=== PATIENT | female | born 1990 | race Caucasian/White ===

== ENCOUNTER 2017-02-28 19:52 | Emergency (ER) | payer OTHER ==
[~2017-02-28] VITALS: Ht 152.4 cm; Wt 57.2 kg
[~2017-02-28 19:52] MED LIST: DOXY100C2 PO; GABA1CAP4 PO; LISD60CA PO; ONDA4TAB46 PO; OXYC-164 PO; OXYC1TAB3 PO
[2017-02-28 20:03] VITALS: TEMP 36.7; Ht 152.4 cm; Wt 57.2 kg
[2017-02-28] MEDS ORDERED: KETOROLAC TROMETHAMINE 30 MG/ML VIAL IV STA (20:33)
[2017-02-28] MEDS ORDERED: SODIUM CHLORIDE 0.9% 1000ML 1,000 ML IV STA ×2 (20:33→23:06)
[2017-02-28 20:47] LABS: URINE APPEARANCE CLEAR (CLEAR); URINE BILIRUBIN NEG (NEG); URINE COLOR YELLOW; URINE EPITHELIAL CELL AUTO >30 /lpf (0-5); URINE NITRITE NEG (NEG); URINE SPECIFIC GRAVITY 1.011 (1.000-1.030); UROBILINOGEN NEG (NEG); ZZUR CULT IF INDIC CLEAN CATCH YES
[2017-02-28 20:48] LABS: MANUAL MICROSCOPIC REQUIRED? NO; REVIEW REQ? NO
[2017-02-28 21:04] LABS: BASO % 0.3 %; BASO ABS # 0.02 K/uL (0-0.2); COMPLETE YES; EOS % 1.7 %; HEMATOCRIT 43.4 % (37-47); IG% 0.2 %; LYMPH ABS # 2.27 K/uL (1.2-3.4); MEAN CELL VOLUME 92.7 fL (80-100); MEAN CORPUSCULAR HEMOGLOBIN 30.8 pg (25-34); MEAN CORPUSCULAR HGB CONC 33.2 g/dl (32-36); MONO % 10.4 %; NEUT % 49.4 %; PLATELET COUNT 336 K/uL (130-400); RED BLOOD COUNT 4.68 M/uL (4.2-5.4); WHITE BLOOD COUNT 5.98 K/uL (4.8-10.8)
--- NOTE | 2017-02-28 21:12 | DIAGNOSTIC IMAGING REPORT ---
CT HEAD WITHOUT CONTRAST (CT) CLINICAL HISTORY: Severe headache COMPARISON STUDY: 09/04/2016 TECHNIQUE: Axial CT of the brain is performed from the vertex to the skull base. IV contrast was not administered for this examination. CT DOSE: 537.48 mGy.cm FINDINGS: No intra or extra-axial mass lesions are visualized. There is no CT evidence of acute cortical infarction. There is no evidence of midline shift. There is no acute hemorrhage. No calvarial fractures are visualized. There is no evidence of pathologic ventricular dilatation. There is no evidence of acute sinusitis IMPRESSION: Normal noncontrast head CT. Electronically signed by: Larry Carrilol M.D. 02/28/2017 9:10 PM Dictated Date/Time: 02/28/2017 9:09 PM
[2017-02-28] MEDS ORDERED: AMPH20TA2 PO (21:14)
[2017-02-28] MEDS ORDERED: NORT10CA PO (21:14)
[2017-02-28 21:16] LABS: BENZODIAZEPINE, URINE NEG (NEG); COCAINE,URINE NEG (NEG); PHENCYCLIDINE, URINE NEG (NEG)
[2017-02-28 21:21] LABS: ALT/SGPT 25 U/L (12-78); BLOOD UREA NITROGEN 14 mg/dl (7-18); BUN/CREATININE RATIO 12.4 (10-20); CARBON DIOXIDE 26 mmol/L (21-32); CHLORIDE 105 mmol/L (98-107); GLUCOSE 93 mg/dl (70-99); POTASSIUM 3.6 mmol/L (3.5-5.1); SODIUM 140 mmol/L (136-145)
[2017-02-28 21:24] LABS: ALKALINE PHOSPHATASE 73 U/L (45-117); AST/SGOT 15 U/L (15-37)
[2017-02-28 21:56] LABS: CALCIUM 9.1 mg/dl (8.5-10.1)
[2017-03-01 00:12] VITALS: BP 116/81; PULSE 94; O2SAT 100
--- NOTE | 2017-03-01 02:07 | EMERGENCY ROOM VISIT NOTE ---
History Report prepared by Joby: Guerrero Perea Under the Supervision of: Dr. Perfecto Amado D.O. First contact with patient: 20:14 Chief Complaint: NEURO SYMPTOMS Stated Complaint: BLURRY VISION,SOB,HAD SEIZURE LAST NIGHT History of Present Illness The patient is a 26 year old female who presents to the Emergency Room with complaints of persistent vision irregularities that began at 2200 last night, 22 hours prior to arrival. The patient states that she had a seizure-like episode last night at 2200. Before this episode occurred the patient states that she was "seeing dots" and had a headache that felt like there was a pressure behind her eyes. She also started to experience "tingling and numbness " down the back of her legs and into her calves. Her noted that she then passed out for roughly a minute. After this episode the patient's hand were "cramped up" and she could not move them. When she woke up she was aware of who and where she was. She denies biting her tongue or becoming incontinent during this episode. She denies any history of seizure activity. The patient went to the [facility] following this episode. She claims that she is still experiencing the vision irregularities at this time. She describes her vision as hazy, and notes that she is intermittently seeing double. She is also currently experiencing a headache, but claims that she has had headaches everyday since she was diagnosed with Lyme Disease in July of last year. She recently was started on Nortriptyline for these head aches on the fifth of this month, four days prior to this visit. At the outside hospital she was treated for tardive dyskinesia and sent home. Source of History: patient Onset: 22 hours BAKER BENCH Position: eye (bilateral) Quality: other (Vision irregularities) Timing: other (Persistent) Associated Symptoms: + numbness ((tingling down legs)) Note: Syncopal episodes Review of Systems See HPI for pertinent positives & negatives. A total of 10 systems reviewed and were otherwise negative. Past Medical & Surgical Medical Problems: (1) Acute urinary tract infection (2) No Known Active Medical Problems Family History No pertinent family history Social History Smoking Status: Never Smoker Alcohol Use: occasionally Drug Use: none Marital Status: single Occupation Status: employed Current/Historical Medications Scheduled Amphetamine-Dextroamphetamine 20MG (Adderall 20MG), 20 MG PO QAM Nortriptyline Hcl (Pamelor), 10 MG PO HS Allergies Coded Allergies: No Known Allergies (Unverified , 02/28/17) Physical Exam Vital Signs Date Time Temp Pulse Resp B/P Pulse Ox O2 Delivery O2 Flow Rate FiO2 03/01/17 00:12 94 18 116/81 100 02/28/17 22:57 95 18 137/100 100 Room Air 02/28/17 21:27 92 18 137/99 100 Room Air 02/28/17 20:03 36.7 130 20 141/83 98 Room Air Physical Exam GENERAL: Sitting up in bed, disheveled appearing. EYE EXAM: normal conjunctiva, PERRL and EOM's intact OROPHARYNX: no exudate, no erythema, lips, buccal mucosa, and tongue normal and mucous membranes are moist NECK: Negative Brudzinski, supple, no nuchal rigidity, no adenopathy, non-tender LUNGS: Clear to auscultation. Normal chest wall mechanics HEART: Tachycardiac. no murmurs, S1 normal and S2 normal ABDOMEN: abdomen soft, non-tender, normo-active bowel sounds, no masses, no rebound or guarding. BACK: Back is symmetrical on inspection and there is no deformity, no midline tenderness, no CVA tenderness. SKIN: no rashes and no bruising UPPER EXTREMITIES: upper extremities are grossly normal. LOWER EXTREMITIES: No pitting edema. Patellar reflexes 2/4. NEURO EXAM: Normal sensorium, cranial nerves II-XII intact, normal speech, no weakness of arms, no weakness of legs. No drift. Finger to nose intact. Gross sensation intact. Medical Decision & Procedures ER Provider Diagnostic Interpretation: Radiology results as stated below per my review and the radiologist's interpretation: CT HEAD WITHOUT CONTRAST (CT) CLINICAL HISTORY: Severe headache COMPARISON STUDY: 09/04/2016 TECHNIQUE: Axial CT of the brain is performed from the vertex to the skull base. IV contrast was not administered for this examination. CT DOSE: 537.48 mGy.cm FINDINGS: No intra or extra-axial mass lesions are visualized. There is no CT evidence of acute cortical infarction. There is no evidence of midline shift. There is no acute hemorrhage. No calvarial fractures are visualized. There is no evidence of pathologic ventricular dilatation. There is no evidence of acute sinusitis IMPRESSION: Normal noncontrast head CT. Electronically signed by: Larry Carrillo M.D. 02/28/2017 9:10 PM Dictated Date/Time: 02/28/2017 9:09 PM PORTABLE UP RIGHT AV CHEST X-RAY: No focal infiltrate. No pneumothorax. Laboratory Results 02/28/17 20:50 Red Blood Count 4.68, Mean Corpuscular Volume 92.7, Mean Corpuscular Hemoglobin 30.8, Mean Corpuscular Hemoglobin Concent 33.2, Mean Platelet Volume 10.0, Neutrophils (%) (Auto) 49.4, Lymphocytes (%) (Auto) 38.0, Monocytes (%) (Auto) 10.4, Eosinophils (%) (Auto) 1.7, Basophils (%) (Auto) 0.3, Neutrophils # (Auto ) 2.96, Lymphocytes # (Auto) 2.27, Monocytes # (Auto) 0.62, Eosinophils # (Auto ) 0.10, Basophils # (Auto) 0.02 02/28/17 20:50 Test 02/28/17 20:30 02/28/17 20:50 Urine Color YELLOW Urine Appearance CLEAR (CLEAR) Urine pH 6.0 (4.5-7.5) Urine Specific Ringold 1.011 (1.000-1.030) Urine Protein NEG (NEG) Urine Glucose (UA) NEG (NEG) Urine Ketones NEG (NEG) Urine Occult Blood NEG (NEG) Urine Nitrite NEG (NEG) Urine Bilirubin NEG (NEG) Urine Urobilinogen NEG (NEG) Urine Leukocyte Esterase SMALL (NEG) Urine WBC (Auto) 10-30 /hpf (0-5) Urine RBC (Auto) 0-4 /hpf (0-4) Urine Hyaline Casts (Auto) 1-5 /lpf (0-5) Urine Epithelial Cells (Auto) >30 /lpf (0-5) Urine Bacteria (Auto) NEG (NEG) Urine Test NEG (NEG) Urine Opiates Screen NEG (NEG) Urine Methadone, Qualitative NEG (NEG) Urine Barbiturates NEG (NEG) Urine Phencyclidine (PCP) Level NEG (NEG) Ur Amphetamine/Methamphetamine POS (NEG) MDMA (Ecstasy) Screen NEG (NEG) Urine Benzodiazepines Screen NEG (NEG) Urine Cocaine Metabolite NEG (NEG) Urine Marijuana (THC) NEG (NEG) White Blood Count 5.98 K/uL (4.8-10.8) Red Blood Count 4.68 M/uL (4.2-5.4) Hemoglobin 14.4 g/dL (12.0-16.0) Hematocrit 43.4 % (37-47) Mean Corpuscular Volume 92.7 fL (80-100) Mean Corpuscular Hemoglobin 30.8 pg (25-34) Mean Corpuscular Hemoglobin Concent 33.2 g/dl (32-36) Platelet Count 336 K/uL (130-400) Mean Platelet Volume 10.0 fL (7.4-10.4) Neutrophils (%) (Auto) 49.4 % Lymphocytes (%) (Auto) 38.0 % Monocytes (%) (Auto) 10.4 % Eosinophils (%) (Auto) 1.7 % Basophils (%) (Auto) 0.3 % Neutrophils # (Auto) 2.96 K/uL (1.4-6.5) Lymphocytes # (Auto) 2.27 K/uL (1.2-3.4) Monocytes # (Auto) 0.62 K/uL (0.11-0.59) Eosinophils # (Auto) 0.10 K/uL (0-0.5) Basophils # (Auto) 0.02 K/uL (0-0.2) RDW Standard Deviation 45.0 fL (36.4-46.3) RDW Coefficient of Variation 13.4 % (11.5-14.5) Immature Granulocyte % (Auto) 0.2 % Immature Granulocyte # (Auto) 0.01 K/uL (0.00-0.02) D-Dimer < 190 ug/L FEU (0-500) Anion Gap 9.0 mmol/L (3-11) Est Creatinine Clear Calc Drug Dose 61.9 ml/min Estimated GFR () 80.8 Estimated GFR (Non- 69.7 BUN/Creatinine Ratio 12.4 (10-20) Calcium Level 9.1 mg/dl (8.5-10.1) Total Bilirubin 0.5 mg/dl (0.2-1) Direct Bilirubin 0.1 mg/dl (0-0.2) Aspartate Amino Transf (AST/SGOT) 15 U/L (15-37) Alanine Aminotransferase (ALT/SGPT) 25 U/L (12-78) Alkaline Phosphatase 73 U/L (45-117) Troponin I < 0.015 ng/ml (0-0.045) Total Protein 8.4 gm/dl (6.4-8.2) Albumin 4.7 gm/dl (3.4-5.0) Lipase 142 U/L (73-393) Laboratory results per my review. Medications Administered Medications (Trade) Dose Ordered Sig/Ramiro Route Start Time Stop Time Status Last Admin Dose Admin Sodium Chloride (Nss 1000ml) 1,000 ml @ 999 mls/hr Q1H1M STAT IV 02/28/17 20:33 02/28/17 21:33 DC 02/28/17 20:54 999 MLS/HR Ketorolac Tromethamine 30 mg 30 mg NOW STAT IV 02/28/17 20:33 02/28/17 20:36 DC 02/28/17 20:54 30 MG Sodium Chloride (Nss 1000ml) 1,000 ml @ 999 mls/hr Q1H1M STAT IV 02/28/17 23:06 03/01/17 00:06 DC 02/28/17 23:21 999 MLS/HR ECG Indication: tachycardia Rate (beats per minute): 111 Findings: other (Normal axis, normal intervals) ED Course ED COURSE: Vital signs were reviewed and showed tachycardiac vitals The patients medical record was reviewed The above diagnostic studies were performed and reviewed. ED treatments and interventions as stated above. 2019: The patient was evaluated in room C12. A complete history and physical examination was performed. 2033: Ordered Toradol 30 mg IV, Sodium Chloride 1000 mL @ 999 mL/hr IV. 2306: Ordered Sodium Chloride 1000 mL @ 999 mL/hr IV. 2328: I discussed the case with Dr. Carrera at this time, he believes her symptoms are secondary to the Nortriptyline. Her vision and seizure-like symptoms can be the result of this medication. 2339: I had a very long conversation with the patient at bed side. She declines a LP at this time. 2342: Upon reevaluation, the patient is resting in bed.I discussed my findings with the patient and she understands and agrees with the treatment plan. Based on the patients age, coexisting illnesses, exam and lab findings the decision to treat as an outpatient was made. The patient remained stable while under my care. Medical Decision Differential Diagnosis includes but is not limited to dehydration, stroke, anemia, hypoglycemia, hyponatremia, hypernatremia, urinary tract infection, pneumonia, bronchitis, sepsis, gastroenteritis, additional abdominal pathology, metabolic abnormalities and infections. Patient is a 26-year-old female who presents the ER for an episode where she passed out yesterday. She did not bite her tongue and did not lose control of her bowel or bladder. She notes that she did have rigidity in her upper and lower extremities at that time. She seen at outside hospital and treated for tardive dyskinesia their records. On my exam she is completely neurologically intact. This does not appear to be a seizure. EKG was unremarkable. Labs including CBC, BMP, LFTs, troponin and lipase were normal. Tox screen was normal. UA was contaminated with multiple epithelial cells. was negative. D-dimer was negative as discussed above. I do not believe this to be cardiac. With a negative d-dimer I do not believe this to be a PE causing her shortness of breath or a CVT causing her headache. She had a fever previously but has taken no Tylenol or Motrin. No other recorded fevers. No fever upon presentation. CT head was negative. She was given fluids and heart rate trended down. I discussed my findings with neurology. They believe that the blurry vision and near seizure activity is likely secondary to the nortriptyline that she started taking. Dr. Carrera notes that this can take several days to resolve. I updated the patient regards to these findings. Dr. Carrera agreed that an MRI was not beneficial at this time. Patient felt significantly better and was discharged follow-up with her PCP. I did give her referral to neurology. Stressed the importance of not taking the nortriptyline. There is no signs of meningitis or encephalitis on exam. I did offer an LP but patient declined and she does not believe that she has meningitis. I explained the risk and benefits. Discussed with Pt concerning signs and symptoms to watch out for. Pt was instructed to follow up with their PCP and discussed with the patient their option to return to the ED at anytime for persistent or worsening symptoms. The appropriate anticipatory guidance and out-patient management, including indications for return to the emergency department, were explained at length to the patient and understood. Consults Time Called: [phone] Consulting Physician: Dr. Carrera Returned Call: [phone] I discussed the case with Dr. Carrera at this time, he believes her symptoms are secondary to the Nortriptyline. Her vision and seizure-like symptoms can be the result of this medication. Impression Primary Impression: Medication side effect Additional Impressions: Headache Bilateral leg paresthesia Scribe Attestation The scribe's documentation has been prepared under my direction and personally reviewed by me in its entirety. I confirm that the note above accurately reflects all work, treatment, procedures, and medical decision making performed by me. Departure Information Dispostion Home / Self-Care Referrals Mirna Medina (PCP) Forms HOME CARE DOCUMENTATION FORM, IMPORTANT VISIT INFORMATION, WORK / SCHOOL INSTRUCTIONS Patient Instructions My [facility] Additional Instructions Please follow up with your primary care doctor with in the next 24 hours. Any worsening of your symptoms, please return to the ED immediately. This includes passing out, chest pain, shortness of breath, weakness of your arms or legs, confusion or any other concerning signs or symptoms from your standpoint. Please stop taking the nortriptyline. Please follow-up with neurology as listed below. Problem Qualifiers Primary Impression: Medication side effect Encounter type: sequela Qualified Codes: T88.7XXS - Unspecified adverse effect of drug or medicament, sequela Additional Impressions: Headache Headache type: unspecified Headache chronicity pattern: acute headache Intractability: not intractable Qualified Codes: R51 - Headache
--- NOTE | 2017-03-01 06:37 | DIAGNOSTIC IMAGING REPORT ---
CHEST ONE VIEW PORTABLE CLINICAL HISTORY: Chest pain. COMPARISON STUDY: Chest CT June 05, 2014. FINDINGS: Lung volumes are normal. Lungs are clear. There is no pneumothorax or pleural effusion. Cardiac size is normal. Mediastinal contours are normal. There is no evidence of pulmonary edema. IMPRESSION: No acute cardiopulmonary findings. Electronically signed by: Eduardo Leslie M.D. 03/01/2017 6:36 AM Dictated Date/Time: 03/01/2017 6:35 AM
== END 2017-03-01 00:13 | disposition home or self-care (01) ==
LOC: C.EDB 19:54 → C.EDC 03-01 00:13
DX: T78.40XA Allergy, unspecified, initial encounter (principal); X58.XXXA Exposure to other specified factors, initial encounter; R51 Headache; R20.2 Paresthesia of skin; R00.1 Bradycardia, unspecified; Z87.440 Personal history of urinary (tract) infections; Z79.899 Other long term (current) drug therapy

== ENCOUNTER 2017-03-01 11:48 | Emergency (ER) | payer OTHER ==
[~2017-03-01] VITALS: Ht 152.4 cm; Wt 57.9 kg
[~2017-03-01 11:48] MED LIST changes: +AMPH20TA2 PO; +NORT10CA PO
[2017-03-01 11:51] VITALS: Ht 152.4 cm; Wt 57.9 kg
[2017-03-01] MEDS ORDERED: SODIUM CHLORIDE 0.9% 1000ML 1,000 ML IV STA (12:17)
[2017-03-01] MEDS ORDERED: SODIUM CHLORIDE 0.9% 1000ML 1,000 ML IV ONE (12:17)
[2017-03-01] MEDS ORDERED: KETOROLAC TROMETHAMINE 30 MG/ML VIAL IV STA (12:17)
--- NOTE | 2017-03-01 12:20 | EMERGENCY ROOM VISIT NOTE ---
History Report prepared by Joby: Nathan Alfred Under the Supervision of: Dr. Jason Bee M.D. First contact with patient: 12:01 Chief Complaint: CONFUSION Stated Complaint: BLURRED VISION, HEADACHE, CONFUSION History of Present Illness The patient is a 26 year old female who presents to the Emergency Room with complaints of a headache that began a couple of days ago. She rates her pain a 5 /10 in severity. In July 2016, she was diagnosed with "lymes meningitis." She received an MRI which found a Chiari malformation, but she did not meet all of the criteria. Two days ago she had a seizure-like episode, which she went to the [place] ED. During this episode, she could not breath and lost consciousness. She was also experiencing a headache that she describes as pressure behind her eyes and blurry vision. 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 She takes this medication for her past medical history of migraines. Yesterday she was seen in the [facility] ED for worsening headache and vision blurring. She had an extensive work up. The doctors here thought she was having adverse reactions from her Nortriptyline. These symptoms are persistent today with added confusion. Per her , the patient was playing with a dog in her living room, but they do not have a dog. She is currently experiencing weakness in her extremities and tingling in her calfs. She denies any shortness of breath, fevers, or rash. Source of History: patient Onset: a couple of days ago Position: head Symptom Intensity: 5/10 Quality: ache Timing: constant Associated Symptoms: + weakness, No SOB, No fevers, No rash Note: She is experiencing blurred vision. Review of Systems See HPI for pertinent positives & negatives. A total of 10 systems reviewed and were otherwise negative. Past Medical & Surgical Medical Problems: (1) Acute urinary tract infection (2) No Known Active Medical Problems Old medical records were reviewed. Nurse's notes were reviewed and I agree with. Family History No pertinent family history Social History Smoking Status: Former Smoker Alcohol Use: occasionally Drug Use: none Marital Status: single Occupation Status: employed Current/Historical Medications Scheduled Amphetamine-Dextroamphetamine 20MG (Adderall 20MG), 20 MG PO QAM Nortriptyline Hcl (Pamelor), 10 MG PO HS Allergies Coded Allergies: No Known Allergies (Unverified , 02/28/17) Physical Exam Vital Signs Date Time Temp Pulse Resp B/P Pulse Ox O2 Delivery O2 Flow Rate FiO2 03/01/17 16:39 37.1 90 18 126/93 98 03/01/17 15:15 104 20 138/100 100 Room Air 03/01/17 13:16 93 18 141/97 100 Room Air 03/01/17 11:51 37.1 130 20 139/90 100 Room Air Physical Exam General: Non-ill appearing young female, Well developed well nourished in no acute distress, breathing comfortably on room air. Normal speech HEENT: Normal cephalic atraumatic. Pupils are equal round and reactive to light. Extraocular movements are intact. Oropharynx is pink with moist mucous membranes. No swelling of the mouth lips or tongue. Neck: Supple with a midline trachea. No meningeal signs or stiffness, no JVD or bruits. No Stridor. Chest: Clear to auscultation bilaterally. No wheezes or rhonchi. No increased work of breathing. Heart: regular rate and rhythm. Abdomen: Soft nontender, nondistended without rebound guarding or rigidity. Extremities: No cyanosis clubbing or edema. No calf tenderness or assymetry Spine/Back. Non tender to palpation. No CVA tenderness Skin: Good turgor without rashes. Neurologic exam: Cranial nerves two through 12 are intact. Motor and sensation are intact and symmetrical throughout. Medical Decision & Procedures ER Provider Diagnostic Interpretation: Radiology results as stated below per my review and radiologist interpretation: MRA OF THE INTRACRANIAL CIRCULATION WITHOUT CONTRAST CLINICAL HISTORY: Headache. Eye pain. Blurred vision. COMPARISON STUDY: Head CT February 28, 2017. TECHNIQUE: Utilizing a 1.5 Mirta magnet and 3-D [id number] technique, unenhanced MRA of the intracranial circulation was obtained. FINDINGS: The MRI of the brain will be reported separately. This exam is mildly compromised by motion artifact which likely accounts for apparent irregularity of the bilateral cavernous carotids. The bilateral M1, M2, A1 and A2 segments are patent. There is no intracranial aneurysm or abrupt vessel cut off. Posterior circulation is intact. There are bilateral posterior communicating arteries and an anterior communicating artery. IMPRESSION: 1. Unremarkable MRA of the intracranial circulation. 2. Study mildly compromised by motion artifact. Electronically signed by: Eduardo Leslie M.D. 03/01/2017 1:59 PM Dictated Date/Time: 03/01/2017 1:56 PM MRI OF THE BRAIN WITHOUT AND WITH IV CONTRAST CLINICAL HISTORY: Headache. Blurred vision. COMPARISON STUDY: Head CT February 28, 2017. TECHNIQUE: Utilizing a 1.5 Mirta magnet and dedicated coil, multiplanar, multiecho imaging of the brain was performed pre and postcontrast administration. IV administration of 5.5 mL of Gadavist contrast was uneventful. FINDINGS: There are no areas of restricted diffusion. No acute intracranial hemorrhage, midline shift or mass effect is present. Brain volume is normal. Ventricular system is normal. Basilar cisterns are patent. There are no extra-axial collections. Flow-voids for the major intracranial vessels are present. There are no intracranial masses or pathologic enhancement. There is no abnormal signal within the brain. Calvarium is intact. Orbits and sinuses are unremarkable. There is no fluid within the mastoid air cells. There is no evidence of a Chiari malformation IMPRESSION: Normal MRI of the brain. Electronically signed by: Eduardo Leslie M.D. 03/01/2017 2:25 PM Dictated Date/Time: 03/01/2017 2:21 PM Laboratory Results 03/01/17 12:30 Red Blood Count 4.42, Mean Corpuscular Volume 92.3, Mean Corpuscular Hemoglobin 31.0, Mean Corpuscular Hemoglobin Concent 33.6, Mean Platelet Volume 10.3, Neutrophils (%) (Auto) 49.8, Lymphocytes (%) (Auto) 39.8, Monocytes (%) (Auto) 8.1, Eosinophils (%) (Auto) 2.1, Basophils (%) (Auto) 0.2, Neutrophils # (Auto) 2.15, Lymphocytes # (Auto) 1.72, Monocytes # (Auto) 0.35, Eosinophils # (Auto) 0.09, Basophils # (Auto) 0.01 03/01/17 12:30 Test 03/01/17 12:30 White Blood Count 4.32 K/uL (4.8-10.8) Red Blood Count 4.42 M/uL (4.2-5.4) Hemoglobin 13.7 g/dL (12.0-16.0) Hematocrit 40.8 % (37-47) Mean Corpuscular Volume 92.3 fL (80-100) Mean Corpuscular Hemoglobin 31.0 pg (25-34) Mean Corpuscular Hemoglobin Concent 33.6 g/dl (32-36) Platelet Count 287 K/uL (130-400) Mean Platelet Volume 10.3 fL (7.4-10.4) Neutrophils (%) (Auto) 49.8 % Lymphocytes (%) (Auto) 39.8 % Monocytes (%) (Auto) 8.1 % Eosinophils (%) (Auto) 2.1 % Basophils (%) (Auto) 0.2 % Neutrophils # (Auto) 2.15 K/uL (1.4-6.5) Lymphocytes # (Auto) 1.72 K/uL (1.2-3.4) Monocytes # (Auto) 0.35 K/uL (0.11-0.59) Eosinophils # (Auto) 0.09 K/uL (0-0.5) Basophils # (Auto) 0.01 K/uL (0-0.2) RDW Standard Deviation 45.2 fL (36.4-46.3) RDW Coefficient of Variation 13.3 % (11.5-14.5) Immature Granulocyte % (Auto) 0.0 % Immature Granulocyte # (Auto) 0.00 K/uL (0.00-0.02) Erythrocyte Sedimentation Rate 2 mm/hr (0-21) Anion Gap 5.0 mmol/L (3-11) Est Creatinine Clear Calc Drug Dose 81.6 ml/min Estimated GFR () 112.0 Estimated GFR (Non- 96.6 BUN/Creatinine Ratio 11.1 (10-20) Calcium Level 8.9 mg/dl (8.5-10.1) Total Bilirubin 0.8 mg/dl (0.2-1) Direct Bilirubin 0.2 mg/dl (0-0.2) Aspartate Amino Transf (AST/SGOT) 11 U/L (15-37) Alanine Aminotransferase (ALT/SGPT) 22 U/L (12-78) Alkaline Phosphatase 61 U/L (45-117) Total Protein 7.4 gm/dl (6.4-8.2) Albumin 4.1 gm/dl (3.4-5.0) Lipase 91 U/L (73-393) Laboratory studies as stated above per my review. Medications Administered Medications (Trade) Dose Ordered Sig/Ramiro Route Start Time Stop Time Status Last Admin Dose Admin Sodium Chloride (Nss 1000ml) 1,000 ml @ 999 mls/hr Q1H1M STAT IV 03/01/17 12:17 03/01/17 13:17 DC 03/01/17 12:34 999 MLS/HR Ketorolac Tromethamine (Toradol Inj) 30 mg NOW STAT IV 03/01/17 12:17 03/01/17 12:20 DC 03/01/17 12:47 30 MG ECG Indication: altered mental status Rate (beats per minute): 92 Rhythm: normal sinus Findings: no acute ischemic change, other (No significant prolongation of QT) Comparison ECG Date: 28 Feb 2017 Change: The rate has decreased. ED Course 1201: Past medical records reviewed. The patient was evaluated in room C6, and a complete history and physical examination were performed. 1217: Ordered Toradol Inj 30 mg IV, Sodium Chloride 1000 ml @ 150 mls/hr IV, Sodium Chloride 1000 ml @ 999 mls/hr IV 1323: The patient declines any further pain medications. She feels better and is going to MRI. 1450: She is still feeling better. Her mother is coming to her room soon. 1518: I spoke with her mother at this time. She told me that the patient went to [place] on Monday, and they gave her several shots in the butt. 1613: Upon reevaluation, the patient is resting. I discussed the results and treatment plan with her. She verbalized agreement of the treatment plan. The patient was discharged home. Medical Decision Differentials include migraine, infection, intracranial process, electrolyte or metabolic abnormality, and meningitis. This patient comes in as described above. She has continued headache and blurry vision. She was seen recently last evening and was thought most likely related to her nortriptyline. She had extensive workup including CAT scan of her head she continues of the symptoms. She is afebrile and looks well on exam. She has a normal neurologic exam. IV access established. she was given IV hydration and Toradol. I did an MRI and MRA of her brain. She was reassessed frequently. She was feeling better and I talked to her mother at length. Apparently, she was much worse yesterday where she was seen things. Her mother tells me that on Monday, 2 days ago she seen in the [place] emergency department. I did get get the records from [place] and she apparently was very anxious and they gave her 1 mg by mouth Ativan as well as Cogentin 2 mg IM. She also had been recently on nortriptyline I think that a lot of her symptoms may be anticholinergic. She seems to be doing better than yesterday although still not 100%. She has a normal neurologic exam. I did MRI and MRA of her brain are unremarkable. Her blood work is unremarkable . Her sedimentation rate is 2 and therefore not inflammatory . She has nothing to suggest meningitis or encephalitis. I talked to her mother who is an ICU nurses at length, she agrees with the plan. At this point, I do not feel the patient needs a spinal tap. She does not desire one at this point either. Again, I think most likely is related to the medication she received as she did not have a lot of these symptoms prior to receiving the Cogentin which is likely a large relatively large dose given her body size. She was encouraged to follow-up with her regular doctor return if: Worsening of symptoms, fever or chills, numbness or weakness, any new problems or concerns. Impression Primary Impression: Blurred vision Additional Impressions: Anticholinergic crisis Medication side effect Scribe Attestation The scribe's documentation has been prepared under my direction and personally reviewed by me in its entirety. I confirm that the note above accurately reflects all work, treatment, procedures, and medical decision making performed by me. Departure Information Dispostion Home / Self-Care Referrals Mirna Medina (PCP) Forms HOME CARE DOCUMENTATION FORM, IMPORTANT VISIT INFORMATION, WORK / SCHOOL INSTRUCTIONS Patient Instructions [facility] Additional Instructions Rest Stop the Nortryptylline REturn if: worsening of symptoms, any new problems or concerns, fever or chills. Follow-up with your doctor tomorrow for recheck. Problem Qualifiers
[2017-03-01 12:47] LABS: BASO % 0.2 %; BASO ABS # 0.01 K/uL (0-0.2); COMPLETE YES; EOS % 2.1 %; HEMATOCRIT 40.8 % (37-47); LYMPH % 39.8 %; LYMPH ABS # 1.72 K/uL (1.2-3.4); MEAN CELL VOLUME 92.3 fL (80-100); MEAN CORPUSCULAR HGB CONC 33.6 g/dl (32-36); MEAN PLATELET VOLUME 10.3 fL (7.4-10.4); MONO % 8.1 %; NEUT % 49.8 %; PLATELET COUNT 287 K/uL (130-400); RED BLOOD COUNT 4.42 M/uL (4.2-5.4); WHITE BLOOD COUNT 4.32 K/uL (4.8-10.8)
[2017-03-01 13:13] LABS: BUN/CREATININE RATIO 11.1 (10-20); CALCIUM 8.9 mg/dl (8.5-10.1); CREATININE 0.84 mg/dl (0.60-1.20); POTASSIUM 3.8 mmol/L (3.5-5.1)
--- NOTE | 2017-03-01 14:00 | DIAGNOSTIC IMAGING REPORT ---
MRA OF THE INTRACRANIAL CIRCULATION WITHOUT CONTRAST CLINICAL HISTORY: Headache. Eye pain. Blurred vision. COMPARISON STUDY: Head CT February 28, 2017. TECHNIQUE: Utilizing a 1.5 Mirta magnet and 3-D [id number] technique, unenhanced MRA of the intracranial circulation was obtained. FINDINGS: The MRI of the brain will be reported separately. This exam is mildly compromised by motion artifact which likely accounts for apparent irregularity of the bilateral cavernous carotids. The bilateral M1, M2, A1 and A2 segments are patent. There is no intracranial aneurysm or abrupt vessel cut off. Posterior circulation is intact. There are bilateral posterior communicating arteries and an anterior communicating artery. IMPRESSION: 1. Unremarkable MRA of the intracranial circulation. 2. Study mildly compromised by motion artifact. Electronically signed by: Eduardo Leslie M.D. 03/01/2017 1:59 PM Dictated Date/Time: 03/01/2017 1:56 PM
--- NOTE | 2017-03-01 14:26 | DIAGNOSTIC IMAGING REPORT ---
MRI OF THE BRAIN WITHOUT AND WITH IV CONTRAST CLINICAL HISTORY: Headache. Blurred vision. COMPARISON STUDY: Head CT February 28, 2017. TECHNIQUE: Utilizing a 1.5 Mirta magnet and dedicated coil, multiplanar, multiecho imaging of the brain was performed pre and postcontrast administration. IV administration of 5.5 mL of Gadavist contrast was uneventful. FINDINGS: There are no areas of restricted diffusion. No acute intracranial hemorrhage, midline shift or mass effect is present. Brain volume is normal. Ventricular system is normal. Basilar cisterns are patent. There are no extra-axial collections. Flow-voids for the major intracranial vessels are present. There are no intracranial masses or pathologic enhancement. There is no abnormal signal within the brain. Calvarium is intact. Orbits and sinuses are unremarkable. There is no fluid within the mastoid air cells. There is no evidence of a Chiari malformation IMPRESSION: Normal MRI of the brain. Electronically signed by: Eduardo Leslie M.D. 03/01/2017 2:25 PM Dictated Date/Time: 03/01/2017 2:21 PM
[2017-03-01 16:39] VITALS: BP 126/93; PULSE 90; TEMP 37.1; O2SAT 98
== END 2017-03-01 16:40 | disposition home or self-care (01) ==
LOC: C.EDB 11:50 → C.EDC 16:40
DX: T44.3X1A Poisoning by other parasympatholytics [anticholinergics and antimuscarinics] and spasmolytics, accidental (unintentional), initial encounter (principal); H53.8 Other visual disturbances; Z87.442 Personal history of urinary calculi; Z87.891 Personal history of nicotine dependence; Z79.899 Other long term (current) drug therapy

== ENCOUNTER 2017-07-15 17:52 | Emergency (ER) | payer OTHER ==
[~2017-07-15] VITALS: Ht 152.4 cm; Wt 57.3 kg
[~2017-07-15 17:52] MED LIST changes: -DOXY100C2 PO; -GABA1CAP4 PO; -LISD60CA PO; -ONDA4TAB46 PO; -OXYC-164 PO; -OXYC1TAB3 PO
[2017-07-15 18:01] VITALS: TEMP 37.1; Ht 152.4 cm; Wt 57.3 kg
[2017-07-15] MEDS ORDERED: SODIUM CHLORIDE 0.9% 1000ML 1,000 ML IV STA (18:27)
[2017-07-15] MEDS ORDERED: ONDANSETRON INJ 2 MG/ML 2 ML VIAL IV STA (18:27)
[2017-07-15] MEDS ORDERED: KETOROLAC TROMETHAMINE 30 MG/ML VIAL IV STA (18:27)
[2017-07-15] MEDS ORDERED: SODIUM CHLORIDE 0.9% 1000ML 1,000 ML IV ONE (18:27)
--- NOTE | 2017-07-15 18:37 | EMERGENCY ROOM VISIT NOTE ---
History Report prepared by Joby: Pasquale Lopez Under the Supervision of: Dr. Jason Bee M.D. First contact with patient: 18:12 Chief Complaint: ABDOMINAL PAIN Stated Complaint: ABD PAIN History of Present Illness The patient is a 26 year old female who presents to the Emergency Room with complaints of intermittent abdominal pain that started a couple of days ago. She rates her pain as an 8/10 in severity and describes her pain as a cramp and pressure. The patient states that the pain is located in her epigastric region radiating to her back. She admits to some abdominal swelling. The patient states that her last bowel movement was two days ago and admits that she normally has a bowel movement every other day. She states that she gave herself an enema last night, but denies any relief of constipation. The patient states that her last bowel movement was hard, but she denies any straining. She reports that she has also been experiencing nausea. The patient admits that she took Tums, Pepto Bismol, Gas-X, and other medications, but denies any relief of symptoms. She states that she went to [place] the other day where they performed an ultrasound of her gall bladder, kidneys, and liver. The patient states that there was no significant results and she was given pepsin. She states that she also had a test done which was negative. The patient states that the physician thought her symptoms may be due to a stomach ulcer. The patient denies any chance of due to a history of tubal ligation. She admits that she noticed blood spotting from her vaginal area, which she reports she is unsure why it occurred. The patient admits that she has not had an appetite, but was able to eat before coming into the ED. The patient states that her abdominal pain has been constant all day today. She states that she has been stressed recently due to her 2 year old child going through root canals of 20 teeth. The patient denies any vaginal discharge, trauma, injury, fever, vomiting, urinary symptoms, cholecystectomy, appendectomy, chest pain, SOB, numbness or weakness in her legs. Source of History: patient Onset: a couple of days ago Position: abdomen Symptom Intensity: 8/10 Quality: pressure, cramping Timing: intermittent Associated Symptoms: + nausea, + back pain, No fevers, No chest pain, No SOB , No vomiting, No urinary symptoms, No weakness, No numbness Review of Systems See HPI for pertinent positives & negatives. A total of 10 systems reviewed and were otherwise negative. Past Medical & Surgical Medical Problems: (1) Acute urinary tract infection (2) No Known Active Medical Problems Old medical records were reviewed. Nurse's notes were reviewed and I agree with. Family History No pertinent family history Social History Smoking Status: Never Smoker Alcohol Use: occasionally Drug Use: none Marital Status: single Occupation Status: employed Current/Historical Medications Scheduled Amphetamine-Dextroamphetamine 20MG (Adderall 20MG), 20 MG PO QAM Allergies Coded Allergies: Benztropine (Unverified Allergy, Intermediate, SEEING THINGS, 07/15/17) Nortriptyline (Unverified Allergy, Intermediate, SEIZURE, 07/15/17) Physical Exam Vital Signs Date Time Temp Pulse Resp B/P (MAP) Pulse Ox O2 Delivery O2 Flow Rate FiO2 07/15/17 21:23 78 16 115/74 100 07/15/17 19:33 98 18 121/87 100 Room Air 07/15/17 18:01 37.1 103 20 126/79 100 Room Air Physical Exam General: Well developed well nourished middle aged female in no acute distress, breathing comfortably on room air. Normal speech HEENT: Normal cephalic atraumatic. Pupils are equal round and reactive to light. Extraocular movements are intact. Oropharynx is pink with moist mucous membranes. No swelling of the mouth lips or tongue. Neck: Supple with a midline trachea. No meningeal signs or stiffness, no JVD or bruits. No Stridor. Chest: Clear to auscultation bilaterally. No wheezes or rhonchi. No increased work of breathing. Heart: regular rate and rhythm. Abdomen: Mildly tender in the epigastric region, no tenderness in the lower abdomen. Mildly distended without rebound guarding or rigidity. Extremities: No cyanosis clubbing or edema. No calf tenderness or assymetry Spine/Back. Non tender to palpation. No CVA tenderness Skin: Good turgor without rashes. Neurologic exam: Cranial nerves two through 12 are intact. Motor and sensation are intact and symmetrical throughout. Medical Decision & Procedures ER Provider Diagnostic Interpretation: X-ray results as stated below per interpretation by me and the radiologist: CHEST AND ABDOMEN 2 VIEWS HISTORY: Generalized abdominal pain and distention. COMPARISON: Chest 02/28/2017. FINDINGS: The lungs are clear. The cardiomediastinal silhouette is within normal limits. There is no pneumoperitoneum or pneumatosis. The bowel gas pattern is unremarkable. No evidence for bowel obstruction. Calcifications within the left deep pelvis likely represent phleboliths. No renal or ureteral calculi identified. Moderate well-formed stool seen within the colon.. IMPRESSION: No acute cardiopulmonary process. No evidence for bowel obstruction. Moderate well-formed stool seen within the colon. Electronically signed by: Guerrero Shane M.D. 07/15/2017 7:34 PM Dictated Date/Time: 07/15/2017 7:32 PM Laboratory Results 07/15/17 18:50 Red Blood Count 4.39, Mean Corpuscular Volume 91.8, Mean Corpuscular Hemoglobin 30.5, Mean Corpuscular Hemoglobin Concent 33.3, Mean Platelet Volume 10.0, Neutrophils (%) (Auto) 56.0, Lymphocytes (%) (Auto) 32.7, Monocytes (%) (Auto) 10.1, Eosinophils (%) (Auto) 0.8, Basophils (%) (Auto) 0.2, Neutrophils # (Auto ) 2.82, Lymphocytes # (Auto) 1.65, Monocytes # (Auto) 0.51, Eosinophils # (Auto ) 0.04, Basophils # (Auto) 0.01 07/15/17 18:50 Test 07/15/17 18:50 White Blood Count 5.04 K/uL (4.8-10.8) Red Blood Count 4.39 M/uL (4.2-5.4) Hemoglobin 13.4 g/dL (12.0-16.0) Hematocrit 40.3 % (37-47) Mean Corpuscular Volume 91.8 fL (80-100) Mean Corpuscular Hemoglobin 30.5 pg (25-34) Mean Corpuscular Hemoglobin Concent 33.3 g/dl (32-36) Platelet Count 280 K/uL (130-400) Mean Platelet Volume 10.0 fL (7.4-10.4) Neutrophils (%) (Auto) 56.0 % Lymphocytes (%) (Auto) 32.7 % Monocytes (%) (Auto) 10.1 % Eosinophils (%) (Auto) 0.8 % Basophils (%) (Auto) 0.2 % Neutrophils # (Auto) 2.82 K/uL (1.4-6.5) Lymphocytes # (Auto) 1.65 K/uL (1.2-3.4) Monocytes # (Auto) 0.51 K/uL (0.11-0.59) Eosinophils # (Auto) 0.04 K/uL (0-0.5) Basophils # (Auto) 0.01 K/uL (0-0.2) RDW Standard Deviation 42.8 fL (36.4-46.3) RDW Coefficient of Variation 12.8 % (11.5-14.5) Immature Granulocyte % (Auto) 0.2 % Immature Granulocyte # (Auto) 0.01 K/uL (0.00-0.02) Anion Gap 9.0 mmol/L (3-11) Est Creatinine Clear Calc Drug Dose 69.6 ml/min Estimated GFR () 92.9 Estimated GFR (Non- 80.2 BUN/Creatinine Ratio 9.5 (10-20) Calcium Level 9.6 mg/dl (8.5-10.1) Total Bilirubin 0.4 mg/dl (0.2-1) Direct Bilirubin < 0.1 mg/dl (0-0.2) Aspartate Amino Transf (AST/SGOT) 16 U/L (15-37) Alanine Aminotransferase (ALT/SGPT) 20 U/L (12-78) Alkaline Phosphatase 74 U/L (45-117) Total Protein 7.8 gm/dl (6.4-8.2) Albumin 3.9 gm/dl (3.4-5.0) Lipase 146 U/L (73-393) Human Chorionic Gonadotropin, Qual NEG (NEG) Laboratory studies as stated above per my review. Medications Administered Medications (Trade) Dose Ordered Sig/Ramiro Route Start Time Stop Time Status Last Admin Dose Admin Sodium Chloride 1,000 ml @ 999 mls/hr Q1H1M STAT IV 07/15/17 18:27 07/15/17 19:27 DC 07/15/17 18:48 999 MLS/HR Sodium Chloride 1,000 ml @ 200 mls/hr Q5H ONCE IV 07/15/17 18:27 07/15/17 22:12 DC 07/15/17 18:48 200 MLS/HR Ketorolac Tromethamine (Toradol Inj) 30 mg NOW STAT IV 07/15/17 18:27 07/15/17 18:30 DC 07/15/17 18:49 30 MG Ondansetron HCl (Zofran Inj) 4 mg NOW STAT IV 07/15/17 18:27 07/15/17 18:30 DC 07/15/17 18:49 4 MG Miscellaneous (Soap Suds Enema) 1 ea ONE STAT VT 07/15/17 20:02 07/15/17 20:04 DC 07/15/17 20:27 1 EA ED Course 1818: Past medical records reviewed. The patient was evaluated in room C08, and a complete history and physical examination were performed. 1826: Ordered Zofran Injection 4 mg IV, Toradol Injection 30 mg IV, Sodium Chloride 1000 ml @ 200 mls/hr IV, Sodium Chloride 1000 ml @ 999 mls/hr IV. 1958: I reviewed the patient's EMR, which showed that she had an ultrasound done yesterday with a normal gallbladder, liver, and right kidney. 2000: I reevaluated the patient and she is resting comfortably. She will be getting an enema. 2001: Ordered soap Suds Enema 1 each VT. 2111: Upon reevaluation, the patient had success with the enema and would like to go home. I discussed the results and treatment plan with the patient. She verbalized agreement of the treatment plan. The patient was discharged home. Medical Decision Differentials include, but are not limited to; constipation, gallbladder disease , PUD, pancreatitis, , dehydration, and electrolyte/ metabolic abnormality. This patient comes in as described above. She was placed from . She's having epigastric abdominal pain as well as constipation. She feels bloated. She has not had a bowel movement for about 3 days. She's had no vomiting or fever. Her abdomen is mildly tender in epigastric area. She apparently had an ultrasound and workup done yesterday in [place]. IV access established was given IV hydration as well as IV Toradol and IV Zofran. She is driving. Multiple blood testing was obtained. I did an acute abdominal series to evaluate her for constipation and or obstruction. She does a fair amount of stool but no bowel obstruction. She has no white count or fever to suggest infection. She's had no acute electrode or metabolic abnormalities. She has nothing to suggest liver gallbladder pancreas disease. I did review her old records from [place] ER yesterday. She did have an ultrasound of right upper quadrant was unremarkable with a normal liver, gallbladder, and right kidney. I do not feel the need to repeat this tonight. She was given a soapsuds enema and passed some hard small stool and said she was feeling better after going home at think this most likely is constipation. At this point, I do not feel she needs a CAT scan and I do not want to subject her to unnecessary radiation. I told her rest and drink plenty of fluids use stool softeners or [id number] laxatives. Return to ER if: Fever, worsening of symptoms, any new problems or concerns. She is happy the plan and discharged to home. Medication Reconcilliation Current Medication List: was personally reviewed by me Blood Pressure Screening Patient's blood pressure: Elevated blood pressure Blood pressure disposition: Elevated BP felt to be situational Impression Primary Impression: Central abdominal pain Additional Impression: Constipation Scribe Attestation The scribe's documentation has been prepared under my direction and personally reviewed by me in its entirety. I confirm that the note above accurately reflects all work, treatment, procedures, and medical decision making performed by me. Departure Information Dispostion Home / Self-Care Referrals Mirna Medina (PCP) Forms HOME CARE DOCUMENTATION FORM, IMPORTANT VISIT INFORMATION Patient Instructions My [facility] Additional Instructions Rest. Drink plenty of fluids. Use a stool softener and/or enema if needed. Return if: Fever or chills, increasing pain, worsening of symptoms, any new problems or concerns. Follow-up with your doctor on nday for recheck Problem Qualifiers
[2017-07-15 18:58] LABS: BASO % 0.2 %; BASO ABS # 0.01 K/uL (0-0.2); COMPLETE YES; EOS % 0.8 %; HEMATOCRIT 40.3 % (37-47); IG% 0.2 %; LYMPH % 32.7 %; LYMPH ABS # 1.65 K/uL (1.2-3.4); MEAN CELL VOLUME 91.8 fL (80-100); MEAN CORPUSCULAR HEMOGLOBIN 30.5 pg (25-34); MEAN CORPUSCULAR HGB CONC 33.3 g/dl (32-36); MONO % 10.1 %; PLATELET COUNT 280 K/uL (130-400); RED BLOOD COUNT 4.39 M/uL (4.2-5.4); WHITE BLOOD COUNT 5.04 K/uL (4.8-10.8)
[2017-07-15 19:22] LABS: PREG INTERNAL NEGATIVE QC NEG CLEAR BACKGROUND; PREG INTERNAL POSITIVE QC POS CONTROL LINE
[2017-07-15 19:30] LABS: ALT/SGPT 20 U/L (12-78); BLOOD UREA NITROGEN 9 mg/dl (7-18); BUN/CREATININE RATIO 9.5 (10-20); CALCIUM 9.6 mg/dl (8.5-10.1); CARBON DIOXIDE 26 mmol/L (21-32); CHLORIDE 104 mmol/L (98-107); CREATININE 0.98 mg/dl (0.60-1.20); GLUCOSE 92 mg/dl (70-99); POTASSIUM 3.7 mmol/L (3.5-5.1); SODIUM 139 mmol/L (136-145)
[2017-07-15 19:33] LABS: ALKALINE PHOSPHATASE 74 U/L (45-117); AST/SGOT 16 U/L (15-37)
--- NOTE | 2017-07-15 19:36 | DIAGNOSTIC IMAGING REPORT ---
CHEST AND ABDOMEN 2 VIEWS HISTORY: Generalized abdominal pain and distention. COMPARISON: Chest 02/28/2017. FINDINGS: The lungs are clear. The cardiomediastinal silhouette is within normal limits. There is no pneumoperitoneum or pneumatosis. The bowel gas pattern is unremarkable. No evidence for bowel obstruction. Calcifications within the left deep pelvis likely represent phleboliths. No renal or ureteral calculi identified. Moderate well-formed stool seen within the colon.. IMPRESSION: No acute cardiopulmonary process. No evidence for bowel obstruction. Moderate well-formed stool seen within the colon. Electronically signed by: Guerrero Shane M.D. 07/15/2017 7:34 PM Dictated Date/Time: 07/15/2017 7:32 PM
[2017-07-15] MEDS ORDERED: SOAP SUDS ENEMA PR STA (20:02)
[2017-07-15 21:23] VITALS: BP 115/74; PULSE 78; O2SAT 100
== END 2017-07-15 21:24 | disposition home or self-care (01) ==
LOC: C.EDB 17:52 → C.EDC 21:24
DX: R10.9 Unspecified abdominal pain (principal); K59.00 Constipation, unspecified; Z87.440 Personal history of urinary (tract) infections; Z79.899 Other long term (current) drug therapy; Z88.8 Allergy status to other drugs, medicaments and biological substances